=== PATIENT | female | born 1935 | race Caucasian/White ===

== ENCOUNTER 2020-11-08 04:39 | Emergency (ER) | payer OTHER ==
[~2020-11-08 04:39] MED LIST: ALLER-TEC10 MG PO; AMARYL2 MG PO; ASPERCREME76.5 GM TOP; ASPIRIN EC81 MG PO; AUGMENTIN 875-1 EACH PO; B-COMPLEX TABL0.4 MG PO; BERBERINE COMPLEX PO; CINNAMON500 MG PO; COREG 6.25MG6.25 MG PO; COZAAR 25MG TAB25 MG PO; ELIQUIS2.5 MG PO; JANUVIA50 MG PO; LIPITOR20 M1 PO; LOPRESSOR50 MG PO; MULTIVITAMIN PO; NORVASC2.5 MG PO; PEPCID40 MG PO; PHOSLO667 MG PO; PROBIOTIC1 EAC1 PO; RESTASIS1 EACH OP; SYSTANE 0.3-0.1 EACH OU; VITAMIN B-121000 MC1 PO; VITAMIN D350 MC5 PO; VOLTAREN100 GM TOP
[2020-11-08 05:21] LABS: BASOPHIL 0.6 % (0-2); EOSINOPHIL 2.7 % (0-7); HCT 34.7 % (37.0-47.0); HGB 11.8 g/dl (12.5-16.0); LYMPHOCYTE 50.4 % (15-48); MCH 31.7 pg (25.0-31.0); MCV 93.3 fL (78.0-100.0); MONOCYTE 13.4 % (0-12); MPV 9.6 fL (6.0-9.5); NEUTROPHIL 32.7 % (41-80); NRBC 0; PLT 221 K/uL (150-400); RBC 3.72 M/uL (4.20-5.40); RDW 12.6 % (11.5-14.0); WBC 4.8 K/uL (4.0-10.5)
[2020-11-08 05:41] LABS: ALBUMIN 3.7 g/dL (3.4-5.0); BILIRUBIN - TOTAL 0.3 mg/dL (0.2-1.0); BUN/CREAT RATIO (CALC) 22.4 RATIO; CREATININE 1.07 mg/dL (0.51-0.95); GLOBULIN (CALCULATION) 3.8 g/dL; TOTAL PROTEIN 7.5 g/dL (6.4-8.2)
== END 2020-11-08 06:30 | disposition home or self-care (01) ==
LOC: FER 04:39
PROVIDERS: Emergency Medicine
DX: M79.601 Pain in right arm (principal); M79.602 Pain in left arm; I44.0 Atrioventricular block, first degree; I12.9 Hypertensive chronic kidney disease with stage 1 through stage 4 chronic kidney disease, or unspecified chronic kidney disease; E11.22 Type 2 diabetes mellitus with diabetic chronic kidney disease; N18.9 Chronic kidney disease, unspecified; I25.2 Old myocardial infarction; Z95.0 Presence of cardiac pacemaker; Z79.4 Long term (current) use of insulin
CPT/HCPCS: 36415; 71045; 80053; 84484; 85025; 93005

== ENCOUNTER 2021-09-04 12:03 | Inpatient (IN) | payer OTHER ==
[~2021-09-04] VITALS: Ht 170.2 cm; Wt 74.8 kg
[~2021-09-04 12:03] MED LIST changes: +VITAMIN D3125 MCG PO; -VITAMIN D350 MC5 PO
[2021-09-04 12:35] LABS: BASOPHIL 0.5 % (0-2); EOSINOPHIL 2.3 % (0-7); HCT 36.8 % (37.0-47.0); HGB 11.7 g/dl (12.5-16.0); LYMPHOCYTE 33.3 % (15-48); MCH 30.9 pg (25.0-31.0); MCHC 31.8 g/dL (32.0-36.0); MCV 97.1 fL (78.0-100.0); MONOCYTE 10.2 % (0-12); NEUTROPHIL 53.5 % (41-80); NRBC 0; PLT 254 K/uL (150-400); RBC 3.79 M/uL (4.20-5.40); RDW 14.7 % (11.5-14.0); WBC 6.6 K/uL (4.0-10.5)
[2021-09-04 12:40] LABS: INR 1.22 (0.9-1.2); PROTHROMBIN TIME 14.8 SECONDS (11.8-13.4)
[2021-09-04 12:53] LABS: ALBUMIN 3.6 g/dL (3.4-5.0); BILIRUBIN - TOTAL 0.4 mg/dL (0.2-1.0); BUN/CREAT RATIO (CALC) 20.2 RATIO; CREATININE 1.14 mg/dL (0.51-0.95); GLOBULIN (CALCULATION) 3.5 g/dL; POTASSIUM 4.5 mmol/L (3.5-5.1); TOTAL PROTEIN 7.1 g/dL (6.4-8.2)
[2021-09-04 13:24] LABS: PTT 31.9 SECONDS (24.4-34.7)
[2021-09-04 14:18] LABS: BILIRUBIN NEGATIVE (NEGATIVE); BLOOD NEGATIVE Ery/uL (NEGATIVE); CLARITY CLEAR (CLEAR); COLOR YELLOW (YELLOW); GLUCOSE (U) TRACE mg/dL (NORMAL); LEUKOCYTES 2+ Leu/uL (NEGATIVE); NITRITE POSITIVE (NEGATIVE); PROTEIN NEGATIVE (NEGATIVE); UROBILINOGEN 0.2 mg/dL (0.2-1.0)
[2021-09-04 14:32] LABS: BACTERIA 3+
[2021-09-04 14:33] LABS: TRANSITIONAL EPITHELIAL CELLS RARE
[2021-09-04] MEDS ORDERED: ISOSORBIDE DINI30 MG PO (17:45)
[2021-09-04] MEDS ORDERED: LEVEMIR FL100 UNIT/1 SC (17:47)
[2021-09-05 05:53] LABS: BASOPHIL 0.5 % (0-2); EOSINOPHIL 1.4 % (0-7); HCT 33.2 % (37.0-47.0); HGB 10.9 g/dl (12.5-16.0); LYMPHOCYTE 16.8 % (15-48); MCH 30.9 pg (25.0-31.0); MCHC 32.8 g/dL (32.0-36.0); MCV 94.1 fL (78.0-100.0); MONOCYTE 8.5 % (0-12); MPV 9.8 fL (6.0-9.5); NEUTROPHIL 72.5 % (41-80); NRBC 0; PLT 226 K/uL (150-400); RBC 3.53 M/uL (4.20-5.40); RDW 14.6 % (11.5-14.0)
[2021-09-05 07:05] LABS: BUN/CREAT RATIO (CALC) 20.2 RATIO; CREATININE 1.04 mg/dL (0.51-0.95); MAGNESIUM 1.7 mg/dL (1.8-2.4); POTASSIUM 3.6 mmol/L (3.5-5.1)
[2021-09-05] MEDS ORDERED: ELIQUIS2.5 MG PO (10:13)
[2021-09-06 04:03] LABS: BASOPHIL 0.4 % (0-2); EOSINOPHIL 2.8 % (0-7); HCT 31.1 % (37.0-47.0); HGB 10.1 g/dl (12.5-16.0); LYMPHOCYTE 31.7 % (15-48); MCHC 32.5 g/dL (32.0-36.0); MCV 95.4 fL (78.0-100.0); MONOCYTE 11.5 % (0-12); MPV 9.9 fL (6.0-9.5); NEUTROPHIL 53.4 % (41-80); NRBC 0; PLT 234 K/uL (150-400); RBC 3.26 M/uL (4.20-5.40); RDW 14.5 % (11.5-14.0); WBC 5.4 K/uL (4.0-10.5)
[2021-09-06 04:30] LABS: BUN/CREAT RATIO (CALC) 12.7 RATIO; CREATININE 1.26 mg/dL (0.51-0.95); MAGNESIUM 1.9 mg/dL (1.8-2.4)
[2021-09-07] MEDS ORDERED: AMIODARONE HCL200 MG PO (15:36)
[2021-09-07] MEDS ORDERED: CEFDINIR300 MG PO (15:36)
== END 2021-09-07 16:08 | disposition home or self-care (01) | DRG 308 ==
LOC: FER 12:03 → FTCU 15:06
PROVIDERS: Emergency Medicine; ADMIT Internal Medicine
PROC: B24BZZ4 Ultrasonography of Heart with Aorta, Transesophageal (ICD-10-PCS; principal; 2021-09-07)
DX: I48.0 Paroxysmal atrial fibrillation (principal); I50.33 Acute on chronic diastolic (congestive) heart failure; I13.0 Hypertensive heart and chronic kidney disease with heart failure and stage 1 through stage 4 chronic kidney disease, or unspecified chronic kidney disease; N39.0 Urinary tract infection, site not specified; Z20.822 Contact with and (suspected) exposure to COVID-19; I25.10 Atherosclerotic heart disease of native coronary artery without angina pectoris; E55.9 Vitamin D deficiency, unspecified; E78.00 Pure hypercholesterolemia, unspecified; I49.5 Sick sinus syndrome; E11.22 Type 2 diabetes mellitus with diabetic chronic kidney disease; N18.2 Chronic kidney disease, stage 2 (mild); D63.1 Anemia in chronic kidney disease; M19.90 Unspecified osteoarthritis, unspecified site; E78.5 Hyperlipidemia, unspecified; Z95.5 Presence of coronary angioplasty implant and graft; Z95.0 Presence of cardiac pacemaker; I25.2 Old myocardial infarction; Z98.41 Cataract extraction status, right eye; Z98.42 Cataract extraction status, left eye; Z90.710 Acquired absence of both cervix and uterus; Z79.01 Long term (current) use of anticoagulants; Z79.82 Long term (current) use of aspirin; Z79.4 Long term (current) use of insulin; Z79.899 Other long term (current) drug therapy
CPT/HCPCS: 36415; 71045; 71275; 80048; 80053; 81001; 82962; 83036; 83735; 83880; 84145; 84484; 85025; 85610; 85730; 87088; 93005; J0282; J0696; J1815; J1940; J2405; J3475; J7060; Q9967; U0002